=== PATIENT | female | born 1945 | race African-American/Black ===

== ENCOUNTER 2019-01-20 15:26 | Emergency (ER) | payer OTHER ==
[~2019-01-20] VITALS: Ht 167.6 cm; Wt 65.0 kg
[2019-01-20] MEDS ORDERED: SODIUM CHLORIDE 0.9% 1,000 ML IV ONE (16:18)
[2019-01-20] MEDS ORDERED: ONDANSETRON HCL 4MG/2ML INJ IV STA (16:18)
[2019-01-20 17:10] LABS: CLARITY URINE CLEAR (CLEAR); COLOR URINE YELLOW (YELLOW); KETONES URINE TRACE (NEGATIVE); LEUKOCYTE ESTERASE URINE NEGATIVE (NEGATIVE); NITRITE URINE NEGATIVE (NEGATIVE); OCCULT BLOOD URINE NEGATIVE (NEGATIVE); PROTEIN URINE 1+ (NEGATIVE); SPECIFIC GRAVITY URINE 1.029 (1.005-1.030)
[2019-01-20 17:33] LABS: BASOPHILS % 0.1 % (0.0-2.0); EOSINOPHILS % 2.8 % (0.0-5.0); HEMOGLOBIN. 9.8 g/dL (12.0-16.0); LYMPHOCYTES % 9.1 % (20.0-50.0); MEAN CORPUSCULAR HEMOGLOBIN 32.7 pg (28.0-32.0); MEAN CORPUSCULAR VOLUME 96.7 fL (81.0-99.0); MONOCYTES % 7.8 % (2.0-8.0); NEUTROPHILS % 80.2 % (40.0-76.0); RED CELL DISTRIBUTION WIDTH 15.4 % (11.6-14.6)
[2019-01-20 17:48] LABS: MEAN PLATELET VOLUME 7.4 fl (7.4-10.4); PLATELET 197 x1000/uL (130-400)
[2019-01-20 20:01] VITALS: BP 127/80
== END 2019-01-20 20:02 | disposition left against medical advice (07) ==
LOC: ER 15:26
DX: R11.2 Nausea with vomiting, unspecified (principal)
CPT/HCPCS: 36415; 81003; 85025; 93005; 96361; 96374; 99284; J2405; J7030

== ENCOUNTER 2021-11-28 12:43 | Emergency (ER) | payer MEDICARE, OTHER ==
[~2021-11-28] VITALS: Ht 157.5 cm; Wt 50.0 kg
[2021-11-28 13:29] LABS: MEAN CORPUSCULAR HEMOGLOBIN 30.9 pg (28.0-32.0); MEAN CORPUSCULAR VOLUME 91.1 fL (81.0-99.0); MEAN PLATELET VOLUME 6.6 fl (7.4-10.4); PLATELET 179 x1000/uL (130-400); RED BLOOD CELL COUNT 1.83 mill/uL (4.2-5.4); RED CELL DISTRIBUTION WIDTH 18.5 % (11.6-14.6)
[2021-11-28 13:37] LABS: CHLORIDE 112 mEq/L (98-107)
[2021-11-28 13:42] LABS: HEMATOCRIT. 16.7 % (36.0-48.0); HEMOGLOBIN. 5.6 g/dL (12.0-16.0)
[2021-11-28 14:12] LABS: PLATELET ESTIMATE NORMAL
[2021-11-28 17:02] LABS: CLARITY URINE CLEAR (CLEAR); COLOR URINE YELLOW (YELLOW); KETONES URINE NEGATIVE (NEGATIVE); LEUKOCYTE ESTERASE URINE NEGATIVE (NEGATIVE); NITRITE URINE NEGATIVE (NEGATIVE); OCCULT BLOOD URINE 1+ (NEGATIVE); PH URINE 5.5 (4.5-8.0); PROTEIN URINE 2+ (NEGATIVE); SPECIFIC GRAVITY URINE 1.018 (1.005-1.030); UROBILINOGEN URINE 0.2 E.U./dL (0.2-1.0)
[2021-11-28 20:35] VITALS: BP 163/71
== END 2021-11-28 20:58 | disposition short-term general hospital (02) ==
LOC: ER 12:43
DX: D64.9 Anemia, unspecified (principal); N17.9 Acute kidney failure, unspecified; Z20.822 Contact with and (suspected) exposure to COVID-19; I51.7 Cardiomegaly; I67.2 Cerebral atherosclerosis
CPT/HCPCS: 36415; 70450; 71045; 80053; 81003; 84484; 85025; 86850; 86900; 86901; 87426; 93005; 99291; J7040

== ENCOUNTER 2022-05-05 17:24 | Inpatient (IN) | payer MEDICARE ==
[~2022-05-05] VITALS: Ht 154.9 cm; Wt 46.4 kg
[2022-05-05] MEDS ORDERED: SODIUM CHLORIDE 0.9% 1,000 ML IV ONE (19:00)
[2022-05-05 19:59] LABS: HEMATOCRIT. 24.8 % (36.0-48.0); HEMOGLOBIN. 8.2 g/dL (12.0-16.0); MEAN CORPUSCULAR VOLUME 96.7 fL (81.0-99.0); MEAN PLATELET VOLUME 6.4 fl (7.4-10.4); PLATELET 125 x1000/uL (130-400); RED BLOOD CELL COUNT 2.57 mill/uL (4.2-5.4); RED CELL DISTRIBUTION WIDTH 21.4 % (11.6-14.6)
[2022-05-05 20:05] LABS: CHLORIDE 112 mEq/L (98-107)
[2022-05-05 20:08] LABS: INR 1.1; PARTIAL THROMBOPLASTIN TIME 27.1 sec (23.4-31.0); PROTHROMBIN TIME 11.7 sec (9.6-11.0)
[2022-05-05 20:44] LABS: PLATELET ESTIMATE DECREASED
[2022-05-05] MEDS ORDERED: FUROSEMIDE 40MG/4ML VIAL IVP ONE (21:15)
[2022-05-06 11:13] VITALS: BP 134/85
[2022-05-06 12:00] VITALS: BP 137/79
[2022-05-06] MEDS ORDERED: DOCUSATE SODIUM 100MG CAPSULE PO PRN (12:15)
[2022-05-06] MEDS ORDERED: MAGNESIUM/ALUMINUM HYDROXIDE/SIMETHICONE 30ML UDC PO PRN (12:15)
[2022-05-06] MEDS ORDERED: ACETAMINOPHEN 325MG TABLET PO PRN (12:15)
[2022-05-06] MEDS ORDERED: HYDROCODONE/ACETAMINOPHEN 5/325MG TABLET PO PRN (12:15)
[2022-05-06] MEDS ORDERED: NALOXONE HCL 0.4MG/ML VIAL IV PRN (12:15)
[2022-05-06] MEDS ORDERED: ONDANSETRON HCL 4MG/2ML INJ IV PRN (12:15)
[2022-05-06] MEDS ORDERED: FUROSEMIDE 40MG/4ML VIAL IVP SCH (12:30)
[2022-05-06] MEDS: SODIUM CHLORIDE 0.9% 1,000 ML IV SCH (12:30)
[2022-05-06] MEDS ORDERED: CEFTRIAXONE 1 G PREMIX 50 ML IV SCH (12:45)
[2022-05-06 13:26] LABS: BG BASE EXCESS -4.2 mmol/L (-2.0-2.0); BG CARBOXYHEMOGLOBIN 0.3 % (0.5-1.5); BG DEOXYHEMOGLOBIN 2.6 % (0.0-5.0); BG FRACTION INSPIRED OXYGEN 21; BG HCO3 ACT 18.5 mmol/L (22.0-26.0); BG METHEMOGLOBIN 0.3 % (0.0-1.5); BG OXYGEN SATURATION 97.4 % (92.0-98.5); BG OXYHEMOGLOBIN 96.8 % (94.0-97.0); BG PCO2 25.5 mmHg (35.0-45.0); BG PH 7.478 (7.350-7.450); BG PO2 96.3 mmHg (75.0-100.0); BG SAMPLE SITE RIGHT RADIAL; BG TOTAL HEMOGLOBIN 8.7 g/dL (12.0-18.0); BG VENT MODE ROOM AIR
[2022-05-06 16:00] VITALS: BP 115/65
[2022-05-06 16:38] LABS: CLARITY URINE CLEAR (CLEAR); COLOR URINE YELLOW (YELLOW); KETONES URINE NEGATIVE (NEGATIVE); LEUKOCYTE ESTERASE URINE NEGATIVE (NEGATIVE); NITRITE URINE NEGATIVE (NEGATIVE); OCCULT BLOOD URINE TRACE (NEGATIVE); PH URINE 5.5 (4.5-8.0); PROTEIN URINE 3+ (NEGATIVE); UROBILINOGEN URINE 0.2 E.U./dL (0.2-1.0)
[2022-05-06 16:57] LABS: HEMATOCRIT. 22.6 % (36.0-48.0); HEMOGLOBIN. 7.7 g/dL (12.0-16.0); MEAN CORPUSCULAR HEMOGLOBIN 32.7 pg (28.0-32.0); MEAN CORPUSCULAR VOLUME 95.9 fL (81.0-99.0); MEAN PLATELET VOLUME 7.1 fl (7.4-10.4); PLATELET 125 x1000/uL (130-400); RED BLOOD CELL COUNT 2.36 mill/uL (4.2-5.4); RED CELL DISTRIBUTION WIDTH 21.6 % (11.6-14.6)
[2022-05-06 17:03] LABS: *AMPHETAMINES SCREEN URINE NEGATIVE (NEGATIVE); *BARBITURATES SCREEN URINE NEGATIVE (NEGATIVE); *BENZODIAZEPINES SCREEN URINE NEGATIVE (NEGATIVE); *COCAINE SCREEN URINE NEGATIVE (NEGATIVE); CANNABINOID URINE SCREEN NEGATIVE (NEGATIVE); METHADONE URINE SCREEN NEGATIVE (NEGATIVE); OPIATES URINE SCREEN NEGATIVE (NEGATIVE); PHENCYCLIDINE URINE SCREEN NEGATIVE (NEGATIVE)
[2022-05-06 17:28] LABS: CHLORIDE 111 mEq/L (98-107)
[2022-05-06] MEDS: CEFTRIAXONE 1,000 MG in DEXTROSE 5% WATER 50 ML IV SCH (17:35)
[2022-05-06] MEDS: OMEPRAZOLE 20MG CAPSULE EXTENDED RELEASE PO SCH (17:38)
[2022-05-06 17:50] LABS: CREATINE KINASE 44 IU/L (26-192)
[2022-05-06 18:27] LABS: NUCLEATED RED BLOOD CELLS 3 /100 WBC; PLATELET ESTIMATE SLIGHTLY DECREASED
[2022-05-06 20:00] VITALS: BP 133/66
[2022-05-06] MEDS: CARVEDILOL 3.125 MG TABLET PO SCH (20:07)
[2022-05-06 21:43] LABS: HEMOGLOBIN 7.7 g/dL (12.0-16.0)
[2022-05-07] VITALS: BP 147/75
[2022-05-07 04:00] VITALS: BP 129/67
[2022-05-07] MEDS: SODIUM CHLORIDE 0.9% 1,000 ML IV SCH ×2 (05:02→21:08)
[2022-05-07] MEDS: OMEPRAZOLE 20MG CAPSULE EXTENDED RELEASE PO SCH (05:02)
[2022-05-07 06:59] LABS: MEAN CORPUSCULAR HEMOGLOBIN 33.2 pg (28.0-32.0); MEAN CORPUSCULAR VOLUME 96.1 fL (81.0-99.0); MEAN PLATELET VOLUME 6.8 fl (7.4-10.4); PLATELET 117 x1000/uL (130-400); RED BLOOD CELL COUNT 2.08 mill/uL (4.2-5.4); RED CELL DISTRIBUTION WIDTH 21.9 % (11.6-14.6)
[2022-05-07 07:35] LABS: HEMOGLOBIN. 6.9 g/dL (12.0-16.0)
[2022-05-07 07:51] LABS: T4 FREE 1.52 ng/dL (0.76-1.46)
[2022-05-07] MEDS: CARVEDILOL 3.125 MG TABLET PO SCH ×2 (09:00→20:15)
[2022-05-07 12:00] VITALS: BP 111/44
[2022-05-07 12:42] LABS: PLATELET ESTIMATE SLIGHTLY DECREASED
[2022-05-07] MEDS: CEFTRIAXONE 1,000 MG in DEXTROSE 5% WATER 50 ML IV SCH (14:26)
[2022-05-07 16:00] VITALS: BP 127/61
[2022-05-07 20:00] VITALS: BP 125/60
[2022-05-08] VITALS (8 sets, daily range): BP systolic 101–163; BP diastolic 51–72
[2022-05-08] MEDS: CLONIDINE 0.1MG TABLET PO PRN (05:34)
[2022-05-08] MEDS: OMEPRAZOLE 20MG CAPSULE EXTENDED RELEASE PO SCH (05:34)
[2022-05-08 06:57] LABS: MEAN CORPUSCULAR HEMOGLOBIN 33.2 pg (28.0-32.0); MEAN PLATELET VOLUME 6.8 fl (7.4-10.4); PLATELET 109 x1000/uL (130-400); RED BLOOD CELL COUNT 2.02 mill/uL (4.2-5.4); RED CELL DISTRIBUTION WIDTH 22.8 % (11.6-14.6)
[2022-05-08 07:56] LABS: FOLIC ACID (FOLATE) SERUM 4.2 ng/mL (>5.38)
[2022-05-08] MEDS: CARVEDILOL 3.125 MG TABLET PO SCH ×2 (08:56→21:52)
[2022-05-08 09:24] LABS: HEMATOCRIT. 20.2 % (36.0-48.0); HEMOGLOBIN. 6.7 g/dL (12.0-16.0)
[2022-05-08] MEDS: SODIUM CHLORIDE 0.9% 1,000 ML IV SCH (14:46)
[2022-05-08] MEDS: CEFTRIAXONE 1,000 MG in DEXTROSE 5% WATER 50 ML IV SCH (14:46)
[2022-05-08 17:09] LABS: ANTI-NUCLEAR ANTIBODIES DIRECT Negative (Negative)
[2022-05-08 17:37] LABS: NUCLEATED RED BLOOD CELLS 2 /100 WBC; PLATELET ESTIMATE DECREASED
[2022-05-08 22:05] LABS: HEMATOCRIT 18.2 % (36.0-48.0)
[2022-05-09] VITALS (11 sets, daily range): BP systolic 130–169; BP diastolic 62–78
[2022-05-09 03:06] LABS: MEAN CORPUSCULAR HEMOGLOBIN 32.5 pg (28.0-32.0); MEAN CORPUSCULAR VOLUME 95.2 fL (81.0-99.0); MEAN PLATELET VOLUME 6.5 fl (7.4-10.4); PLATELET 100 x1000/uL (130-400); RED BLOOD CELL COUNT 2.07 mill/uL (4.2-5.4); RED CELL DISTRIBUTION WIDTH 21.6 % (11.6-14.6)
[2022-05-09 03:11] LABS: INR 1.1; PROTHROMBIN TIME 11.6 sec (9.6-11.0)
[2022-05-09 03:17] LABS: HEMATOCRIT. 19.7 % (36.0-48.0); HEMOGLOBIN. 6.7 g/dL (12.0-16.0)
[2022-05-09 05:56] LABS: NUCLEATED RED BLOOD CELLS 2 /100 WBC
[2022-05-09 05:57] LABS: PLATELET ESTIMATE DECREASED
[2022-05-09] MEDS: OMEPRAZOLE 20MG CAPSULE EXTENDED RELEASE PO SCH (06:28)
[2022-05-09] MEDS: SODIUM CHLORIDE 0.9% 1,000 ML IV SCH (07:06)
[2022-05-09] MEDS: CARVEDILOL 3.125 MG TABLET PO SCH ×2 (08:59→21:17)
[2022-05-09 10:19] LABS: HEMATOCRIT. 25.7 % (36.0-48.0); HEMOGLOBIN. 8.7 g/dL (12.0-16.0); MEAN CORPUSCULAR HEMOGLOBIN 31.8 pg (28.0-32.0); MEAN CORPUSCULAR VOLUME 93.8 fL (81.0-99.0); MEAN PLATELET VOLUME 6.4 fl (7.4-10.4); PLATELET 114 x1000/uL (130-400); RED BLOOD CELL COUNT 2.74 mill/uL (4.2-5.4); RED CELL DISTRIBUTION WIDTH 21.9 % (11.6-14.6)
[2022-05-09] MEDS: CEFTRIAXONE 1,000 MG in DEXTROSE 5% WATER 50 ML IV SCH (14:53)
[2022-05-10] VITALS: BP 129/96
[2022-05-10] MEDS: SODIUM CHLORIDE 0.9% 1,000 ML IV SCH ×2 (00:38→17:41)
[2022-05-10 04:00] VITALS: BP 159/88
[2022-05-10 04:14] LABS: PLATELET ESTIMATE DECREASED
[2022-05-10] MEDS: OMEPRAZOLE 20MG CAPSULE EXTENDED RELEASE PO SCH (06:48)
[2022-05-10 08:00] VITALS: BP 156/78
[2022-05-10] MEDS: CARVEDILOL 3.125 MG TABLET PO SCH ×2 (09:05→21:59)
[2022-05-10 09:12] LABS: PHOSPHORUS 3.1 mg/dL (2.5-4.9)
[2022-05-10 09:13] LABS: HEMATOCRIT. 24.5 % (36.0-48.0); HEMOGLOBIN. 8.4 g/dL (12.0-16.0); MEAN CORPUSCULAR HEMOGLOBIN 32.3 pg (28.0-32.0); MEAN CORPUSCULAR VOLUME 93.7 fL (81.0-99.0); MEAN PLATELET VOLUME 6.9 fl (7.4-10.4); PLATELET 112 x1000/uL (130-400); RED BLOOD CELL COUNT 2.61 mill/uL (4.2-5.4); RED CELL DISTRIBUTION WIDTH 21.9 % (11.6-14.6)
[2022-05-10 12:00] VITALS: BP 187/76
[2022-05-10] MEDS: CEFTRIAXONE 1,000 MG in DEXTROSE 5% WATER 50 ML IV SCH (14:22)
[2022-05-10 16:00] VITALS: BP 154/60
[2022-05-10] MEDS: FOLIC ACID 1MG TABLET PO SCH (17:40)
[2022-05-10 20:00] VITALS: BP 166/87
[2022-05-10 22:50] LABS: PLATELET ESTIMATE DECREASED
[2022-05-11] VITALS: BP 168/96
[2022-05-11 04:00] VITALS: BP_SYST 117; BP_SYST 182; BP_DIAS 105; BP_DIAS 72
[2022-05-11] MEDS: OMEPRAZOLE 20MG CAPSULE EXTENDED RELEASE PO SCH (06:28)
[2022-05-11 07:31] LABS: HEMATOCRIT. 24.7 % (36.0-48.0); HEMOGLOBIN. 8.6 g/dL (12.0-16.0); MEAN CORPUSCULAR HEMOGLOBIN 32.3 pg (28.0-32.0); MEAN CORPUSCULAR VOLUME 93.1 fL (81.0-99.0); MEAN PLATELET VOLUME 6.7 fl (7.4-10.4); PLATELET 119 x1000/uL (130-400); RED BLOOD CELL COUNT 2.65 mill/uL (4.2-5.4); RED CELL DISTRIBUTION WIDTH 21.7 % (11.6-14.6)
[2022-05-11 08:00] VITALS: BP 177/86
[2022-05-11] MEDS: SODIUM CHLORIDE 0.9% 1,000 ML IV SCH (09:10)
[2022-05-11] MEDS: FOLIC ACID 1MG TABLET PO SCH (09:24)
[2022-05-11] MEDS: CARVEDILOL 3.125 MG TABLET PO SCH ×2 (09:25→21:00)
[2022-05-11 12:00] VITALS: BP 175/97
[2022-05-11 12:36] LABS: PLATELET ESTIMATE SLIGHTLY DECREASED
[2022-05-11] MEDS: AMLODIPINE 10MG TABLET PO SCH (12:42)
[2022-05-11] MEDS: CEFTRIAXONE 1,000 MG in DEXTROSE 5% WATER 50 ML IV SCH (15:23)
[2022-05-11] MEDS: CITRIC ACID/SODIUM CITRATE SOLN 15ML UDC PO SCH ×2 (15:24→17:24)
[2022-05-11 16:00] VITALS: BP 169/110
[2022-05-11 20:00] VITALS: BP 160/87
[2022-05-12] VITALS: BP 165/87
[2022-05-12] MEDS: SODIUM CHLORIDE 0.9% 1,000 ML IV SCH (01:59)
[2022-05-12 04:00] VITALS: BP 170/86
[2022-05-12] MEDS: OMEPRAZOLE 20MG CAPSULE EXTENDED RELEASE PO SCH (05:36)
[2022-05-12 08:00] VITALS: BP 185/100
[2022-05-12] MEDS: CITRIC ACID/SODIUM CITRATE SOLN 30ML UDC PO SCH ×3 (08:08→16:18)
[2022-05-12] MEDS: FOLIC ACID 1MG TABLET PO SCH (08:09)
[2022-05-12] MEDS: AMLODIPINE 10MG TABLET PO SCH (08:09)
[2022-05-12] MEDS: CARVEDILOL 3.125 MG TABLET PO SCH (08:10)
[2022-05-12 10:29] LABS: HEMATOCRIT. 24.3 % (36.0-48.0); HEMOGLOBIN. 8.2 g/dL (12.0-16.0); MEAN CORPUSCULAR HEMOGLOBIN 31.8 pg (28.0-32.0); MEAN CORPUSCULAR VOLUME 93.6 fL (81.0-99.0); MEAN PLATELET VOLUME 6.8 fl (7.4-10.4); PLATELET 123 x1000/uL (130-400); RED CELL DISTRIBUTION WIDTH 21.7 % (11.6-14.6)
[2022-05-12 12:00] VITALS: BP 128/65
[2022-05-12 12:42] LABS: NUCLEATED RED BLOOD CELLS 1 /100 WBC; PLATELET ESTIMATE SLIGHTLY DECREASED
[2022-05-12 16:00] VITALS: BP 132/70
[2022-05-12] MEDS: LOSARTAN POTASSIUM 50 MG TABLET PO SCH (16:18)
[2022-05-12 20:00] VITALS: BP 147/76
[2022-05-12] MEDS: CARVEDILOL 12.5MG TABLET PO SCH (20:51)
[2022-05-13] VITALS: BP 149/85
[2022-05-13 04:00] VITALS: BP 166/76
[2022-05-13] MEDS: CLONIDINE 0.1MG TABLET PO PRN (04:59)
[2022-05-13 07:12] LABS: HEMATOCRIT. 26.4 % (36.0-48.0); MEAN CORPUSCULAR HEMOGLOBIN 32.5 pg (28.0-32.0); MEAN CORPUSCULAR VOLUME 95.1 fL (81.0-99.0); MEAN PLATELET VOLUME 6.7 fl (7.4-10.4); PLATELET 135 x1000/uL (130-400); RED BLOOD CELL COUNT 2.77 mill/uL (4.2-5.4); RED CELL DISTRIBUTION WIDTH 22.3 % (11.6-14.6)
[2022-05-13 08:00] VITALS: BP 153/71
[2022-05-13] MEDS: CITRIC ACID/SODIUM CITRATE SOLN 30ML UDC PO SCH ×3 (09:03→17:43)
[2022-05-13] MEDS: CARVEDILOL 12.5MG TABLET PO SCH ×2 (09:04→21:36)
[2022-05-13] MEDS: FOLIC ACID 1MG TABLET PO SCH (09:04)
[2022-05-13] MEDS: AMLODIPINE 5MG TABLET PO SCH (09:04)
[2022-05-13] MEDS: LOSARTAN POTASSIUM 50 MG TABLET PO SCH (09:04)
[2022-05-13 12:00] VITALS: BP 123/58
[2022-05-13 16:00] VITALS: BP 133/83
[2022-05-13 20:00] VITALS: BP 186/104
[2022-05-14] VITALS: BP 152/68
[2022-05-14 04:00] VITALS: BP 167/79
[2022-05-14 08:00] VITALS: BP 161/88
[2022-05-14] MEDS: FOLIC ACID 1MG TABLET PO SCH (08:34)
[2022-05-14] MEDS: CITRIC ACID/SODIUM CITRATE SOLN 30ML UDC PO SCH ×3 (08:34→18:11)
[2022-05-14] MEDS: AMLODIPINE 5MG TABLET PO SCH (08:35)
[2022-05-14] MEDS: LOSARTAN POTASSIUM 50 MG TABLET PO SCH (08:35)
[2022-05-14] MEDS: CARVEDILOL 12.5MG TABLET PO SCH (08:35)
[2022-05-14 09:55] LABS: NUCLEATED RED BLOOD CELLS 2 /100 WBC
[2022-05-14 09:57] LABS: PLATELET ESTIMATE NORMAL
[2022-05-14 12:00] VITALS: BP 136/76
[2022-05-14 16:00] VITALS: BP 143/63
[2022-05-14 19:57] VITALS: BP 143/63
[2022-05-14] MEDS ORDERED: CARVEDILOL 12.5MG TABLET PO SCH (21:00)
[2022-05-14] MEDS ORDERED: LOSARTAN POTASSIUM 50 MG TABLET PO SCH (21:00)
== END 2022-05-14 21:30 | disposition hospice, home (50) | DRG 604 ==
LOC: ER 17:24 → MICUSO 23:54 → 7WST 05-06 09:16 → 7EST 05-08 09:46
PROVIDERS: ADMIT Internal Medicine; ATTEND Internal Medicine
PROC: 30233N1 Transfusion of Nonautologous Red Blood Cells into Peripheral Vein, Percutaneous Approach (ICD-10-PCS; principal; 2022-05-08)
PROC: 30233N1 Transfusion of Nonautologous Red Blood Cells into Peripheral Vein, Percutaneous Approach (ICD-10-PCS; 2022-05-09)
DX: S00.03XA Contusion of scalp, initial encounter (principal); G93.41 Metabolic encephalopathy; N17.9 Acute kidney failure, unspecified; E87.2 Acidosis; E86.0 Dehydration; I50.9 Heart failure, unspecified; Z20.822 Contact with and (suspected) exposure to COVID-19; D64.9 Anemia, unspecified; F03.90 Unspecified dementia, unspecified severity, without behavioral disturbance, psychotic disturbance, mood disturbance, and anxiety; D50.0 Iron deficiency anemia secondary to blood loss (chronic); I11.0 Hypertensive heart disease with heart failure; I27.20 Pulmonary hypertension, unspecified; R80.9 Proteinuria, unspecified; Z74.01 Bed confinement status; W06.XXXA Fall from bed, initial encounter; Y93.89 Activity, other specified; Y92.89 Other specified places as the place of occurrence of the external cause; Y99.8 Other external cause status
CPT/HCPCS: 36415; 36600; 70486; 71045; 76770; 80048; 80053; 80061; 80076; 80305; 81003; 82375; 82550; 82607; 82728; 82746; 82805; 83540; 83550; 83735; 83880; 84100; 84439; 84443; 84484; 85014; 85018; 85025; 85384; 86038; 86160; 86850; 86870; 86900; 86920; 87426; 93005; 93306; 93970; 99285; J0696; J1940; J7030; J7060; L0172; P9016

== ENCOUNTER 2022-07-03 12:31 | Inpatient (IN) | payer MEDICARE ==
[~2022-07-03] VITALS: Ht 170.2 cm; Wt 50.3 kg
[2022-07-03 15:36] LABS: HEMATOCRIT. 25.2 % (36.0-48.0); HEMOGLOBIN. 8.5 g/dL (12.0-16.0); MEAN CORPUSCULAR HEMOGLOBIN 37.5 pg (28.0-32.0); MEAN CORPUSCULAR VOLUME 110.6 fL (81.0-99.0); MEAN PLATELET VOLUME 6.5 fl (7.4-10.4); PLATELET 177 x1000/uL (130-400); RED BLOOD CELL COUNT 2.28 mill/uL (4.2-5.4); RED CELL DISTRIBUTION WIDTH 17.6 % (11.6-14.6)
[2022-07-03 15:47] LABS: CHLORIDE 110 mEq/L (98-107)
[2022-07-03 16:02] LABS: PLATELET ESTIMATE NORMAL
[2022-07-03] MEDS ORDERED: ASPIRIN 81MG TABLET PO NR (16:15)
[2022-07-03] MEDS ORDERED: MORPHINE SULFATE 2 MG/ML CPJ (NOT FOR IM USE) IV NR (17:13)
[2022-07-04] VITALS (7 sets, daily range): BP systolic 127–160; BP diastolic 65–88
[2022-07-04] MEDS ORDERED: NITROGLYCERIN 0.4MG TABLET SL SL PRN (01:00)
[2022-07-04] MEDS: METOPROLOL SUCCINATE 50MG ER TABLET PO SCH ×2 (06:04→17:03)
[2022-07-04] MEDS ORDERED: ONDANSETRON HCL 4MG/2ML INJ IV PRN (08:45)
[2022-07-04] MEDS: ASPIRIN 81MG TABLET PO SCH (09:23)
[2022-07-04] MEDS: LOSARTAN POTASSIUM 25 MG TABLET PO SCH (15:01)
[2022-07-05] VITALS: BP 151/75
[2022-07-05 04:00] VITALS: BP 146/81
[2022-07-05] MEDS: METOPROLOL SUCCINATE 50MG ER TABLET PO SCH ×2 (05:53→18:14)
[2022-07-05 08:00] VITALS: BP 156/75
[2022-07-05] MEDS: LOSARTAN POTASSIUM 25 MG TABLET PO SCH (10:18)
[2022-07-05] MEDS: ASPIRIN 81MG TABLET PO SCH (10:18)
[2022-07-05 12:00] VITALS: BP 147/57
[2022-07-05 16:00] VITALS: BP 160/82
[2022-07-05 20:00] VITALS: BP 137/67
[2022-07-06] VITALS: BP 156/75
[2022-07-06 04:00] VITALS: BP 166/80
[2022-07-06] MEDS: METOPROLOL SUCCINATE 50MG ER TABLET PO SCH ×2 (06:55→17:24)
[2022-07-06 08:00] VITALS: BP 175/94
[2022-07-06] MEDS: ASPIRIN 81MG TABLET PO SCH (09:52)
[2022-07-06] MEDS: LOSARTAN POTASSIUM 25 MG TABLET PO SCH (09:53)
[2022-07-06 12:00] VITALS: BP 163/71
[2022-07-06 16:00] VITALS: BP 156/84
[2022-07-06 20:30] VITALS: BP 162/82
[2022-07-07] MEDS: CLONIDINE 0.1MG TABLET PO PRN (00:20)
[2022-07-07 00:41] VITALS: BP 168/80
[2022-07-07 04:00] VITALS: BP 137/63
[2022-07-07] MEDS: METOPROLOL SUCCINATE 50MG ER TABLET PO SCH ×2 (05:31→17:55)
[2022-07-07 08:00] VITALS: BP 108/50
[2022-07-07] MEDS: LOSARTAN POTASSIUM 25 MG TABLET PO SCH (10:00)
[2022-07-07] MEDS: ASPIRIN 81MG TABLET PO SCH (10:00)
[2022-07-07 12:00] VITALS: BP 120/64
[2022-07-07 16:00] VITALS: BP 163/82
[2022-07-07 20:00] VITALS: BP 139/62
[2022-07-08] VITALS: BP 139/82
[2022-07-08 04:00] VITALS: BP 154/80
[2022-07-08] MEDS: METOPROLOL SUCCINATE 50MG ER TABLET PO SCH ×2 (07:03→18:00)
[2022-07-08 08:00] VITALS: BP_SYST 115; BP_SYST 139; BP_DIAS 62; BP_DIAS 86
[2022-07-08] MEDS: LOSARTAN POTASSIUM 25 MG TABLET PO SCH ×2 (09:41→09:44)
[2022-07-08] MEDS: ASPIRIN 81MG TABLET PO SCH ×2 (09:41→09:44)
[2022-07-08 12:00] VITALS: BP 123/52
[2022-07-08 16:00] VITALS: BP 90/58
[2022-07-08 20:00] VITALS: BP 155/72
[2022-07-09] VITALS: BP 132/71
[2022-07-09 04:00] VITALS: BP 122/81
[2022-07-09] MEDS: METOPROLOL SUCCINATE 50MG ER TABLET PO SCH ×2 (06:02→18:30)
[2022-07-09 08:00] VITALS: BP 128/69
[2022-07-09 12:00] VITALS: BP 142/70
[2022-07-09 16:00] VITALS: BP 183/88
[2022-07-09 20:00] VITALS: BP 141/61
[2022-07-10] VITALS: BP 132/73
[2022-07-10 04:00] VITALS: BP 133/74
[2022-07-10] MEDS: METOPROLOL SUCCINATE 50MG ER TABLET PO SCH ×2 (05:31→17:29)
[2022-07-10 08:00] VITALS: BP 138/90
[2022-07-10] MEDS: LOSARTAN POTASSIUM 25 MG TABLET PO SCH (08:48)
[2022-07-10] MEDS: ASPIRIN 81MG TABLET PO SCH (08:48)
[2022-07-10 12:00] VITALS: BP 171/96
[2022-07-10 16:00] VITALS: BP 157/71
[2022-07-10 19:27] LABS: HEMATOCRIT. 24.6 % (36.0-48.0); HEMOGLOBIN. 7.7 g/dL (12.0-16.0); MEAN CORPUSCULAR HEMOGLOBIN 37.2 pg (28.0-32.0); MEAN CORPUSCULAR VOLUME 118.4 fL (81.0-99.0); MEAN PLATELET VOLUME 7.2 fl (7.4-10.4); PLATELET 153 x1000/uL (130-400); RED BLOOD CELL COUNT 2.08 mill/uL (4.2-5.4); RED CELL DISTRIBUTION WIDTH 18.5 % (11.6-14.6)
[2022-07-10 20:00] VITALS: BP 175/84
[2022-07-11] VITALS: BP 133/74
[2022-07-11 00:39] LABS: NUCLEATED RED BLOOD CELLS 2 /100 WBC
[2022-07-11 00:40] LABS: PLATELET ESTIMATE NORMAL
[2022-07-11 04:00] VITALS: BP 142/81
[2022-07-11] MEDS: METOPROLOL SUCCINATE 50MG ER TABLET PO SCH ×2 (05:27→17:05)
[2022-07-11 08:00] VITALS: BP 134/53
[2022-07-11] MEDS: ASPIRIN 81MG TABLET PO SCH (08:50)
[2022-07-11] MEDS: LOSARTAN POTASSIUM 25 MG TABLET PO SCH (08:51)
[2022-07-11 12:00] VITALS: BP 130/58
[2022-07-11 16:00] VITALS: BP 128/63
[2022-07-11] MEDS: SODIUM CHLORIDE 0.9% 1,000 ML IV SCH (17:05)
[2022-07-11 20:00] VITALS: BP 184/82
[2022-07-11] MEDS: PANTOPRAZOLE SODIUM 40 MG/VIAL IV SCH (20:12)
[2022-07-11 21:49] LABS: HEMATOCRIT 26.5 % (36.0-48.0); HEMOGLOBIN 8.4 g/dL (12.0-16.0)
[2022-07-11] MEDS: CLONIDINE 0.1MG TABLET PO PRN (21:59)
[2022-07-12] VITALS: BP 150/67
[2022-07-12 04:00] VITALS: BP 169/75
[2022-07-12] MEDS: METOPROLOL SUCCINATE 50MG ER TABLET PO SCH ×2 (06:18→18:04)
[2022-07-12 08:00] VITALS: BP 156/73
[2022-07-12] MEDS: LOSARTAN POTASSIUM 25 MG TABLET PO SCH (09:33)
[2022-07-12] MEDS: PANTOPRAZOLE SODIUM 40 MG/VIAL IV SCH ×2 (09:33→18:04)
[2022-07-12 12:00] VITALS: BP 159/70
[2022-07-12] MEDS: SODIUM CHLORIDE 0.9% 1,000 ML IV SCH (12:15)
[2022-07-12 16:00] VITALS: BP 140/77
[2022-07-12 20:00] VITALS: BP 138/59
[2022-07-13] VITALS: BP 174/84
[2022-07-13] MEDS: CLONIDINE 0.1MG TABLET PO PRN ×2 (00:10→21:49)
[2022-07-13 04:00] VITALS: BP 177/82
[2022-07-13] MEDS: METOPROLOL SUCCINATE 50MG ER TABLET PO SCH ×2 (06:07→17:53)
[2022-07-13 08:00] VITALS: BP 162/71
[2022-07-13] MEDS: SODIUM CHLORIDE 0.9% 1,000 ML IV SCH (08:15)
[2022-07-13] MEDS: PANTOPRAZOLE SODIUM 40 MG/VIAL IV SCH ×2 (08:30→17:00)
[2022-07-13] MEDS: LOSARTAN POTASSIUM 25 MG TABLET PO SCH (08:43)
[2022-07-13 12:00] VITALS: BP 149/64
[2022-07-13 16:00] VITALS: BP 159/72
[2022-07-13 20:00] VITALS: BP 174/81
[2022-07-14] VITALS: BP 175/79
[2022-07-14 04:00] VITALS: BP 182/95
[2022-07-14] MEDS: SODIUM CHLORIDE 0.9% 1,000 ML IV SCH (04:15)
[2022-07-14] MEDS: METOPROLOL SUCCINATE 50MG ER TABLET PO SCH ×2 (05:15→17:49)
[2022-07-14] MEDS: CLONIDINE 0.1MG TABLET PO PRN (05:15)
[2022-07-14 08:00] VITALS: BP 163/71
[2022-07-14] MEDS ORDERED: LORAZEPAM 0.5MG TABLET PO PRN (09:00)
[2022-07-14] MEDS: PANTOPRAZOLE 40MG DR TABLET PO SCH ×2 (09:32→17:31)
[2022-07-14] MEDS: LOSARTAN POTASSIUM 25 MG TABLET PO SCH (09:32)
[2022-07-14] MEDS: RISPERIDONE 0.5MG TABLET PO SCH ×2 (09:33→17:31)
[2022-07-14 11:34] VITALS: BP 123/63
[2022-07-14 15:52] VITALS: BP 127/57
[2022-07-14 20:00] VITALS: BP 138/78
[2022-07-15] VITALS (7 sets, daily range): BP systolic 109–175; BP diastolic 60–95
[2022-07-15] MEDS: METOPROLOL SUCCINATE 50MG ER TABLET PO SCH ×2 (05:41→18:14)
[2022-07-15] MEDS: RISPERIDONE 0.5MG TABLET PO SCH ×2 (08:54→17:00)
[2022-07-15] MEDS: PANTOPRAZOLE 40MG DR TABLET PO SCH ×2 (08:54→18:14)
[2022-07-15] MEDS: LOSARTAN POTASSIUM 25 MG TABLET PO SCH (08:54)
[2022-07-15] MEDS: CLONIDINE 0.1MG TABLET PO PRN (17:09)
[2022-07-16] VITALS: BP 119/60
[2022-07-16 04:00] VITALS: BP 153/80
[2022-07-16] MEDS: METOPROLOL SUCCINATE 50MG ER TABLET PO SCH ×2 (05:06→17:34)
[2022-07-16 08:00] VITALS: BP 152/80
[2022-07-16] MEDS: LOSARTAN POTASSIUM 25 MG TABLET PO SCH (08:57)
[2022-07-16] MEDS: PANTOPRAZOLE 40MG DR TABLET PO SCH ×2 (08:57→17:00)
[2022-07-16] MEDS ORDERED: PHENYLEPHRINE HCL 1% 15 ML NASAL SPRAY BOTHNSTRLS PRN ×2 (09:15→09:30)
[2022-07-16] MEDS ORDERED: HYDRALAZINE 10 MG in SODIUM CHLORIDE 0.9% 49.5 ML IV PRN (09:45)
[2022-07-16 13:27] LABS: BG CARBOXYHEMOGLOBIN 0.4 % (0.5-1.5); BG DEOXYHEMOGLOBIN 1.5 % (0.0-5.0); BG FRACTION INSPIRED OXYGEN 30; BG HCO3 ACT 22.3 mmol/L (22.0-26.0); BG METHEMOGLOBIN 0.3 % (0.0-1.5); BG OXYGEN SATURATION 98.5 % (92.0-98.5); BG OXYHEMOGLOBIN 97.8 % (94.0-97.0); BG PCO2 30.9 mmHg (35.0-45.0); BG PH 7.476 (7.350-7.450); BG PO2 116.7 mmHg (75.0-100.0); BG SAMPLE SITE RIGHT RADIAL; BG TOTAL HEMOGLOBIN 7.6 g/dL (12.0-18.0); BG VENT MODE NASAL CANNULA
[2022-07-16 16:00] VITALS: BP 168/78
[2022-07-16] MEDS: HYDRALAZINE 20MG/ML VIAL IV PRN (17:33)
[2022-07-16] MEDS: DEXT 5%/0.45% NACL 1000ML 1,000 ML IV SCH (17:33)
[2022-07-16 20:00] VITALS: BP 116/51
[2022-07-17] VITALS (14 sets, daily range): BP systolic 113–172; BP diastolic 65–99
[2022-07-17 02:36] LABS: MEAN CORPUSCULAR HEMOGLOBIN 36.4 pg (28.0-32.0); MEAN CORPUSCULAR VOLUME 109.6 fL (81.0-99.0); MEAN PLATELET VOLUME 6.8 fl (7.4-10.4); PLATELET 164 x1000/uL (130-400); RED BLOOD CELL COUNT 1.75 mill/uL (4.2-5.4); RED CELL DISTRIBUTION WIDTH 16.9 % (11.6-14.6)
[2022-07-17 02:42] LABS: HEMATOCRIT. 19.2 % (36.0-48.0); HEMOGLOBIN. 6.4 g/dL (12.0-16.0)
[2022-07-17] MEDS: HYDRALAZINE 20MG/ML VIAL IV PRN ×2 (03:08→22:28)
[2022-07-17 05:20] LABS: PLATELET ESTIMATE NORMAL
[2022-07-17] MEDS: DEXT 5%/0.45% NACL 1000ML 1,000 ML IV SCH ×2 (05:45→21:40)
[2022-07-17] MEDS: METOPROLOL SUCCINATE 50MG ER TABLET PO SCH ×3 (05:45→23:26)
[2022-07-17] MEDS: PANTOPRAZOLE 40MG DR TABLET PO SCH ×2 (09:00→18:03)
[2022-07-17] MEDS: LOSARTAN POTASSIUM 50 MG TABLET PO SCH (09:00)
[2022-07-17] MEDS ORDERED: CEFTRIAXONE 1 G PREMIX 50 ML IV SCH (10:15)
[2022-07-17] MEDS: ACETAMINOPHEN 325MG TABLET PO PRN ×2 (15:08→21:53)
[2022-07-17] MEDS: LACTULOSE 20G/30ML UDC PO SCH ×2 (15:08→21:40)
[2022-07-17] MEDS: CEFTRIAXONE 1,000 MG in DEXTROSE 5% WATER 50 ML IV SCH (15:08)
[2022-07-17] MEDS: SODIUM CHLORIDE 0.45% 1,000 ML IV SCH (18:03)
[2022-07-17] MEDS: METRONIDAZOLE 500 MG PREMIX 100 ML IV SCH ×2 (18:03→21:39)
[2022-07-17] MEDS ORDERED: METOPROLOL TARTRATE 25MG TABLET PO SCH (23:00)
[2022-07-17] MEDS ORDERED: METOPROLOL SUCCINATE 50MG ER TABLET PO SCH (23:15)
[2022-07-18] VITALS (11 sets, daily range): BP systolic 109–151; BP diastolic 64–119
[2022-07-18] MEDS: METRONIDAZOLE 500 MG PREMIX 100 ML IV SCH ×3 (05:50→21:01)
[2022-07-18] MEDS: LACTULOSE 20G/30ML UDC PO SCH ×3 (05:50→21:01)
[2022-07-18] MEDS: SODIUM CHLORIDE 0.45% 1,000 ML IV SCH ×3 (08:00→21:00)
[2022-07-18] MEDS: PANTOPRAZOLE 40MG DR TABLET PO SCH ×2 (09:39→18:41)
[2022-07-18] MEDS: METOPROLOL SUCCINATE 50MG ER TABLET PO SCH ×2 (09:40→15:07)
[2022-07-18] MEDS: LOSARTAN POTASSIUM 50 MG TABLET PO SCH (09:40)
[2022-07-18] MEDS: DEXT 5%/0.45% NACL 1000ML 1,000 ML IV SCH (09:40)
[2022-07-18] MEDS ORDERED: DILTIAZEM HCL 5MG/ML 5ML VIAL IV NR (11:30)
[2022-07-18 11:44] LABS: HEMATOCRIT. 22.6 % (36.0-48.0); HEMOGLOBIN. 7.5 g/dL (12.0-16.0); MEAN CORPUSCULAR HEMOGLOBIN 34.6 pg (28.0-32.0); MEAN CORPUSCULAR VOLUME 103.6 fL (81.0-99.0); MEAN PLATELET VOLUME 6.7 fl (7.4-10.4); PLATELET 142 x1000/uL (130-400); RED BLOOD CELL COUNT 2.18 mill/uL (4.2-5.4); RED CELL DISTRIBUTION WIDTH 23.7 % (11.6-14.6)
[2022-07-18] MEDS: CEFTRIAXONE 1,000 MG in DEXTROSE 5% WATER 50 ML IV SCH (11:44)
[2022-07-18] MEDS: DILTIAZEM HCL 30MG TABLET PO SCH ×2 (12:11→18:00)
[2022-07-18 12:24] LABS: PLATELET ESTIMATE NORMAL
[2022-07-18] MEDS ORDERED: DILTIAZEM HCL 5MG/ML 5ML VIAL IV PRN (13:15)
[2022-07-18] MEDS: DILTIAZEM 125MG/125ML PMX 125 ML IV SCH (14:46)
[2022-07-18] MEDS: DILTIAZEM HCL 5MG/ML 5ML VIAL IV PRN ×2 (18:41→20:59)
[2022-07-18] MEDS: CLONIDINE 0.1MG TABLET PO PRN (21:14)
[2022-07-18] MEDS ORDERED: METOPROLOL TARTRATE 50MG TABLET PO SCH (22:14)
[2022-07-19] VITALS (11 sets, daily range): BP systolic 0–135; BP diastolic 0–97
[2022-07-19] MEDS: DILTIAZEM HCL 30MG TABLET PO SCH ×2 (01:19→06:00)
[2022-07-19] MEDS: DILTIAZEM 125MG/125ML PMX 125 ML IV SCH (04:12)
[2022-07-19] MEDS: LACTULOSE 20G/30ML UDC PO SCH (06:42)
[2022-07-19] MEDS: METRONIDAZOLE 500 MG PREMIX 100 ML IV SCH (06:42)
[2022-07-19] MEDS: PANTOPRAZOLE 40MG DR TABLET PO SCH (08:00)
[2022-07-19] MEDS: LOSARTAN POTASSIUM 50 MG TABLET PO SCH (08:00)
[2022-07-19] MEDS: METOPROLOL SUCCINATE 50MG ER TABLET PO SCH (08:01)
[2022-07-19] MEDS ORDERED: MIDODRINE HCL 5MG TABLET PO SCH (10:30)
[2022-07-19 11:35] LABS: MEAN CORPUSCULAR HEMOGLOBIN 34.9 pg (28.0-32.0); MEAN CORPUSCULAR VOLUME 108.1 fL (81.0-99.0); PLATELET 140 x1000/uL (130-400); RED BLOOD CELL COUNT 2.43 mill/uL (4.2-5.4); RED CELL DISTRIBUTION WIDTH 24.6 % (11.6-14.6)
[2022-07-20 11:18] LABS: HEMATOCRIT 26.3 % (36.0-48.0); HEMOGLOBIN 8.5 g/dL (12.0-16.0)
== END 2022-07-19 14:55 | DRG 205 ==
LOC: ER 12:31 → EDBEDREQ 21:01 → EDBEDREQTM 21:01 → ENRESERV 22:01 → 7WST 23:34 → 6EST 07-14 12:17 → 5EST 07-16 13:52
PROVIDERS: ADMIT Internal Medicine; ATTEND Internal Medicine
PROC: 30233N1 Transfusion of Nonautologous Red Blood Cells into Peripheral Vein, Percutaneous Approach (ICD-10-PCS; principal; 2022-07-17)
DX: M94.0 Chondrocostal junction syndrome [Tietze] (principal); E43 Unspecified severe protein-calorie malnutrition; N17.0 Acute kidney failure with tubular necrosis; G93.41 Metabolic encephalopathy; I42.9 Cardiomyopathy, unspecified; I13.0 Hypertensive heart and chronic kidney disease with heart failure and stage 1 through stage 4 chronic kidney disease, or unspecified chronic kidney disease; E72.20 Disorder of urea cycle metabolism, unspecified; I48.20 Chronic atrial fibrillation, unspecified; Z68.1 Body mass index [BMI] 19.9 or less, adult; E87.8 Other disorders of electrolyte and fluid balance, not elsewhere classified; Z66 Do not resuscitate; D72.819 Decreased white blood cell count, unspecified; I95.9 Hypotension, unspecified; D64.9 Anemia, unspecified; N18.2 Chronic kidney disease, stage 2 (mild); I50.9 Heart failure, unspecified; F03.90 Unspecified dementia, unspecified severity, without behavioral disturbance, psychotic disturbance, mood disturbance, and anxiety; Z79.82 Long term (current) use of aspirin; Z85.118 Personal history of other malignant neoplasm of bronchus and lung; Z86.73 Personal history of transient ischemic attack (TIA), and cerebral infarction without residual deficits
CPT/HCPCS: 36415; 36600; 71045; 80048; 80053; 82140; 82375; 82805; 82962; 83735; 83880; 84484; 84550; 85014; 85018; 85025; 85027; 86850; 86870; 86900; 86920; 87077; 93005; 93306; 97162; 99285; A6261; C9113; J0360; J0696; J2270; J3490; J7030; J7060; P9016